=== PATIENT | female | born 1960 | race African-American/Black ===

== ENCOUNTER 2020-08-09 07:31 | Inpatient (IN) | payer OTHER ==
[~2020-08-09] VITALS: Ht 165.1 cm; Wt 68.1 kg
[2020-08-09] MEDS ORDERED: SODIUM CHLORIDE 0.9% 1000ML 1,000 ML IV STA (08:43)
[2020-08-09] MEDS ORDERED: SODIUM CHLORIDE 0.9% IV SCH (08:45)
[2020-08-09] MEDS ORDERED: ACYCLOVIR SODIUM IV SCH (08:45)
[2020-08-09 09:53] LABS: BASOPHILS # (AUTO) 0.1 (0.0-0.1); BASOPHILS % 0.9 % (0.0-1.0); EOSINOPHILS # (AUTO) 0.1 (0.0-0.4); EOSINOPHILS % 1.1 % (0.0-6.0); HEMOGLOBIN 12.3 g/dL (12.0-16.0); LYMPHOCYTES # (AUTO) 1.3 (1.0-3.2); MEAN CORPUSCULAR HEMOGLOBIN 27.7 pg (28-32); MEAN CORPUSCULAR HGB CONC 33.2 g/dL (31-35); MEAN CORPUSCULAR VOLUME 83.3 fL (81-99); MONOCYTES # (AUTO) 0.5 (0.2-0.8); MONOCYTES % 9.4 % (4.4-11.3); NEUTROPHILS # (AUTO) 3.6 (2.1-6.9); NEUTROPHILS % 65.4 % (38.7-80.0); PLATELET COUNT 200 x10e3/uL (140-360); RED BLOOD COUNT 4.44 x10e6/uL (3.6-5.1); RED CELL DISTRIBUTION WIDTH 12.8 % (11.7-14.4)
[2020-08-09 10:04] LABS: INR 0.93; PARTIAL THROMBOPLASTIN TIME 25.2 seconds (23.8-35.5); PROTHROMBIN TIME 12.9 seconds (11.9-14.5)
[2020-08-09 10:11] LABS: ALBUMIN 4.2 g/dL (3.5-5.0); ALBUMIN/GLOBULIN RATIO 1.2 (0.8-2.0); ANION GAP 13.8 mmol/L (8-16); CALCIUM 8.9 mg/dL (8.4-10.2); CREATININE, SERUM 1.15 mg/dL (0.57-1.11); POTASSIUM 3.8 mmol/L (3.5-5.1)
[2020-08-09] MEDS: PREDNISONE 20 MG TAB PO SCH (10:34)
[2020-08-09] MEDS ORDERED: KETOROLAC TROMETHAMINE 30 MG/ML VIAL IV STA (10:38)
[2020-08-09] MEDS ORDERED: TETRACAINE HCL 0.5% OPTH SOLN 4 ML BTL OP ONE (10:45)
[2020-08-09] MEDS ORDERED: FLUORESCEIN SOD(OPTH) 1 MG STRP OP ONE (10:45)
[2020-08-09] MEDS ORDERED: SODIUM CHLORIDE 0.9% 1000ML 1,000 ML IV SCH (10:45)
[2020-08-09] MEDS ORDERED: ONDANSETRON HCL INJ 2MG/ML 2ML 2 MG/ML VIAL IV PRN (10:45)
[2020-08-09] MEDS: SODIUM CHLORIDE 0.9% IV SCH ×2 (11:17→18:27)
[2020-08-09] MEDS: ACYCLOVIR SODIUM IV SCH ×2 (11:17→18:27)
[2020-08-09] MEDS ORDERED: HYDRALAZINE HCL 20 MG/ML VIAL IV PRN (11:45)
[2020-08-09] MEDS ORDERED: ACETAMINOPHEN 325 MG TAB PO PRN (11:45)
[2020-08-09] MEDS: MORPHINE SULFATE INJ 4 MG/ML INJ 1ML IV PRN (15:43)
[2020-08-09 16:00] VITALS: BP 133/72
[2020-08-09 16:28] VITALS: BP 133/72
[2020-08-09 17:17] VITALS: BP 133/72
[2020-08-09] MEDS: FAMOTIDINE 20 MG TAB PO SCH (18:27)
[2020-08-09] MEDS ORDERED: SODIUM CHLORIDE 0.9% 250ML 250 ML ONE (18:34)
[2020-08-09] MEDS: KETOROLAC TROMETHAMINE 30 MG/ML VIAL IV PRN (19:09)
[2020-08-09 20:25] VITALS: BP 137/70
[2020-08-09] MEDS ORDERED: DIPHENHYDRAMINE HCL ELIX 12.5 MG/5 ML UDC PO ONE (22:00)
[2020-08-10] VITALS (8 sets, daily range): BP systolic 132–148; BP diastolic 62–77
[2020-08-10] MEDS: SODIUM CHLORIDE 0.9% IV SCH ×5 (06:00→17:01)
[2020-08-10] MEDS: ACYCLOVIR SODIUM IV SCH ×5 (06:00→17:01)
[2020-08-10 06:07] LABS: BASOPHILS % 0.4 % (0.0-1.0); EOSINOPHILS % 0.3 % (0.0-6.0); HEMATOCRIT 31.6 % (34.2-44.1); HEMOGLOBIN 10.9 g/dL (12.0-16.0); LYMPHOCYTES # (AUTO) 2.2 (1.0-3.2); LYMPHOCYTES % 29.4 % (18.0-39.1); MEAN CORPUSCULAR HEMOGLOBIN 28.4 pg (28-32); MEAN CORPUSCULAR HGB CONC 34.5 g/dL (31-35); MEAN CORPUSCULAR VOLUME 82.3 fL (81-99); MONOCYTES # (AUTO) 0.9 (0.2-0.8); MONOCYTES % 11.8 % (4.4-11.3); NEUTROPHILS # (AUTO) 4.4 (2.1-6.9); NEUTROPHILS % 57.8 % (38.7-80.0); PLATELET COUNT 193 x10e3/uL (140-360); RED BLOOD COUNT 3.84 x10e6/uL (3.6-5.1); RED CELL DISTRIBUTION WIDTH 12.3 % (11.7-14.4)
[2020-08-10 06:29] LABS: ALANINE AMINOTRANSFERASE 17 IU/L (0-55); ALBUMIN 3.4 g/dL (3.5-5.0); ALBUMIN/GLOBULIN RATIO 1.2 (0.8-2.0); ALKALINE PHOSPHATASE 29 IU/L (40-150); ANION GAP 11.6 mmol/L (8-16); BLOOD UREA NITROGEN 10 mg/dL (7-26); BUN/CREATININE RATIO 10 (6-25); CALCIUM 8.2 mg/dL (8.4-10.2); CARBON DIOXIDE 23 mmol/L (22-29); CHLORIDE 108 mmol/L (98-107); CREATININE, SERUM 0.97 mg/dL (0.57-1.11); EST GLOMERULAR FILTRATION RATE > 60 ML/MIN (60-); GLUCOSE 95 mg/dL (74-118); POTASSIUM 3.6 mmol/L (3.5-5.1); SODIUM 139 mmol/L (136-145)
[2020-08-10] MEDS: MORPHINE SULFATE INJ 4 MG/ML INJ 1ML IV PRN (07:26)
[2020-08-10] MEDS ORDERED: ZOLPIDEM TARTRATE 5 MG TAB PO PRN (10:30)
[2020-08-10] MEDS: FAMOTIDINE 20 MG TAB PO SCH ×2 (12:11→16:54)
[2020-08-10] MEDS: CALAMINE LOTION 4 OZ BOTTLE TP SCH ×3 (12:12→21:06)
[2020-08-10] MEDS: MORPHINE SULFATE 2 MG/ML SYR 1ML IV PRN ×2 (12:12→22:30)
[2020-08-10] MEDS: PREDNISONE 20 MG TAB PO SCH (12:12)
[2020-08-10] MEDS: KETOROLAC TROMETHAMINE 30 MG/ML VIAL IV PRN (16:41)
[2020-08-11] MEDS: ACYCLOVIR SODIUM IV SCH ×3 (00:03→12:00)
[2020-08-11] MEDS: SODIUM CHLORIDE 0.9% IV SCH ×3 (00:03→12:00)
[2020-08-11 00:10] VITALS: BP 148/77
[2020-08-11 01:30] VITALS: BP 130/80
[2020-08-11 05:10] VITALS: BP 141/54
[2020-08-11 05:14] LABS: BASOPHILS % 0.3 % (0.0-1.0); EOSINOPHILS % 0.1 % (0.0-6.0); HEMATOCRIT 31.9 % (34.2-44.1); HEMOGLOBIN 11.2 g/dL (12.0-16.0); LYMPHOCYTES # (AUTO) 1.8 (1.0-3.2); LYMPHOCYTES % 25.7 % (18.0-39.1); MEAN CORPUSCULAR HEMOGLOBIN 28.7 pg (28-32); MEAN CORPUSCULAR HGB CONC 35.1 g/dL (31-35); MEAN CORPUSCULAR VOLUME 81.8 fL (81-99); MONOCYTES # (AUTO) 0.6 (0.2-0.8); MONOCYTES % 8.5 % (4.4-11.3); NEUTROPHILS # (AUTO) 4.7 (2.1-6.9); NEUTROPHILS % 65.3 % (38.7-80.0); PLATELET COUNT 205 x10e3/uL (140-360)
[2020-08-11 05:35] LABS: BLOOD UREA NITROGEN 10 mg/dL (7-26); BUN/CREATININE RATIO 11 (6-25); CALCIUM 8.2 mg/dL (8.4-10.2); CARBON DIOXIDE 24 mmol/L (22-29); CHLORIDE 107 mmol/L (98-107); CREATININE, SERUM 0.94 mg/dL (0.57-1.11); EST GLOMERULAR FILTRATION RATE > 60 ML/MIN (60-); GLUCOSE 105 mg/dL (74-118); SODIUM 138 mmol/L (136-145)
[2020-08-11] MEDS: IBUPROFEN 600 MG TAB PO PRN ×2 (05:48→10:07)
[2020-08-11 08:30] VITALS: BP 141/54
[2020-08-11 09:00] VITALS: BP 130/62
[2020-08-11] MEDS: FAMOTIDINE 20 MG TAB PO SCH (09:32)
[2020-08-11] MEDS: PREDNISONE 20 MG TAB PO SCH (09:32)
[2020-08-11] MEDS: CALAMINE LOTION 4 OZ BOTTLE TP SCH (09:32)
[2020-08-11] MEDS ORDERED: PREDNISONE20 MG PO (09:40)
[2020-08-11] MEDS ORDERED: GABAPENTIN300 MG PO (09:40)
[2020-08-11] MEDS ORDERED: ULTRACET TABLE1 EACH PO (09:40)
[2020-08-11] MEDS ORDERED: ACYCLOVIR800 MG PO (09:40)
[2020-08-11 12:38] VITALS: BP 143/58
[2020-08-11] MEDS ORDERED: ONDANSETRON HCL 4 MG ORAL DISINTEGRATING TAB PO PRN (13:15)
== END 2020-08-11 13:37 | disposition home or self-care (01) | DRG 125 ==
LOC: ER 08:28 → ERHOLD 10:45 → MED/SURG2 16:04
PROVIDERS: ADMIT Internal Medicine; ATTEND Internal Medicine
DX: B02.30 Zoster ocular disease, unspecified (principal); Z85.3 Personal history of malignant neoplasm of breast; Z90.11 Acquired absence of right breast and nipple; Z20.828 Contact with and (suspected) exposure to other viral communicable diseases; M19.90 Unspecified osteoarthritis, unspecified site
CPT/HCPCS: 36415; 70450; 70486; 80048; 80053; 83735; 85025; 85610; 85651; 85730; 86787; 87529; 99284; J1885; J2270; J2405; J7030; J7050; J7512; U0002